=== PATIENT | female | born 1955 | race Caucasian/White ===

== ENCOUNTER → 2017-08-20 | Outpatient (CLI) | payer OTHER | END | disposition home or self-care (01) | LOC: KCIC MAMMO 12:33 | DX: Z12.31 Encounter for screening mammogram for malignant neoplasm of breast (principal); M47.896 Other spondylosis, lumbar region; M41.86 Other forms of scoliosis, lumbar region; M48.061 Spinal stenosis, lumbar region without neurogenic claudication; M43.17 Spondylolisthesis, lumbosacral region | CPT/HCPCS: 72110; 77067 ==

== ENCOUNTER → 2018-11-22 | Day surgery (SDC) | payer OTHER ==
[~2018-11-22] MED LIST: HYDROmorphone 2 MG/ML VIAL IV PRN; IBUP-1007 PO; IV RINGERS,LACTATED 1000ML 1,000 ML IV SCH; LIDOCAINE 1% PF 2 ML VIAL. ID PRN; LOSA1TAB19 PO; MECO10002 SL; MORPHINE SULFATE 2 MG/ML VIAL. IV PRN; MULT-47 PO; ONDANSETRON PF 4 MG/2 ML VIAL. IV PRN; PROCHLORPERAZINE 10 MG/2 ML VIAL. IV PRN; PROPOFOL 120 ML IV ONE; VALE500C PO; fentaNYL PF VIAL 100 MCG/2 ML VIAL IV PRN
[2018-11-22 11:15] VITALS: BP 129/86
--- NOTE | 2018-11-23 15:06 | PATHOLOGY ---
[facility] Accession Number: [id number] . 01 Material submitted: . PART A: duodenum - DUODENAL BULB BIOPSY PART B: stomach - RANDOM GASTRIC BIOPSY PART C: esophagus - DISTAL ESOPHAGUS BIOPSY. Modifiers: distal PART D: esophagus - PROXIMAL ESOPHAGUS BIOPSY. Modifiers: proximal PART E: hepatic flexure - HEPATIC FLEXURE POLYPS PART F: colon - ASCENDING COLON POLYP BIOPSY. Modifiers: ascending PART G: sigmoid colon - SIGMOID COLON POLYP . 01 Clinical history: . Dysphagia, family HX colon cancer . 02 Diagnosis: A. Duodenal biopsies, duodenal bulb: - Mild chronic inflammation with focal foveolar metaplasia. . B. Random gastric biopsies: - Mild chronic gastritis. . C. Esophageal biopsies, distal esophagus: - Segments of hyperplastic squamous esophageal mucosa and esophagogastric mucosa showing chronic inflammation. . D. Esophageal biopsies, proximal esophagus: - Segments of squamous esophageal mucosa. . E. Colon biopsies, hepatic flexure polyps: - Sessile serrated polyp / adenoma. - Prominent mucosal fold. . F. Colon biopsies, ascending colon polyp: - Consistent with prominent mucosal fold. . G. Colon biopsies, sigmoid colon polyps: - Hyperplastic polyps. . (JPM:nirav; 11/23/2018) [facility]/11/23/2018 . 02 Comment: Sections of the duodenal bulb biopsy reveal segments of duodenal mucosa showing mild chronic inflammation with a small focus of foveolar metaplasia. Sections of the random gastric biopsy reveal segments of gastric body and antral/body transition mucosa showing congestion and very mild chronic inflammation. A properly-controlled immunoperoxidase stain for Helicobacter is negative for Helicobacter organisms. Sections of the distal esophageal biopsy reveal segments of hyperplastic squamous esophageal mucosa and esophagogastric mucosa showing mild chronic inflammation. The findings are consistent with reflux esophagitis. There is no evidence of Contreras's change, dysplasia or malignancy. Sections of the proximal esophageal biopsy reveal segments of squamous esophageal mucosa. There is no evidence of an eosinophilic esophagitis, Contreras's change, dysplasia, or malignancy. Sections of the hepatic flexure biopsies reveal a sessile serrated polyp / adenoma and a prominent mucosal fold. There is no high grade dysplasia or evidence of malignancy. Sections of the ascending colon biopsies reveal segments of colonic mucosa consistent with prominent fold. There are no adenomatous changes or evidence of malignancy. Sections of the sigmoid colon biopsies reveal multiple hyperplastic polyps. There are no adenomatous changes or evidence of malignancy. . Special stain performed: Immunoperoxidase stain for Helicobacter on B1. . (JPM:mml; 11/23/2018) . 02 Electronically signed: . Davin Francisco MD, Pathologist NPI- [id number] . 01 Gross description: . A. Received in formalin labeled "Karin Willams, duodenal bulb BX," are 2 segments of ann soft tissue measuring 0.5 x 0.2 x 0.2 cm in aggregate dimensions and ranging from 0.2 to 0.3 cm in maximum dimension. The specimen is submitted entirely in cassette A1. . B. Received in formalin labeled "Karin Wlilams, random gastric BX, rule out H. pylori," are 4 segments of ann soft tissue measuring 1.5 x 0.6 x 0.3 cm in aggregate dimensions and ranging from 0.1 to 0.6 cm in maximum dimension. The specimen is submitted entirely in cassette B1. . C. Received in formalin labeled "Karin Willams, distal esophagus BX," is a single segment of ann soft tissue measuring 0.4 cm in maximum dimension. The specimen is submitted entirely in cassette C1. . D. Received in formalin labeled "Mitchel Willamsa, proximal esophagus BX," are 2 segments of ann soft tissue measuring 0.7 x 0.1 x 0.1 cm in aggregate dimensions and ranging from 0.3 to 0.4 cm in maximum dimension. The specimen is submitted entirely in cassette D1. . E. Received in formalin labeled "Karin Willams, hepatic flexure polyps," are 2 segments of ann soft tissue measuring 2.0 x 1.1 x 0.3 cm in aggregate dimensions and ranging from 0.8 to 1.2 cm in maximum dimension. The specimen is submitted entirely in cassette E1. . F. Received in formalin labeled "Karin Willams, ascending colon polyp BX," are 3 segments of ann soft tissue measuring 1.0 x 0.6 x 0.2 cm in aggregate dimensions and ranging from 0.3 to 0.5 cm in maximum dimension. The specimen is submitted entirely in cassette F1. . G. Received in formalin labeled "Karin Willams, sigmoid colon polyp BX," are 6 segments of ann soft tissue measuring 1.6 x 0.8 x 0.3 cm in aggregate dimensions and ranging from 0.2 to 0.5 cm in maximum dimension. The specimen is submitted entirely in cassette G1. (TSD; 11/22/2018) TOB/TOB . 02 Pathologist provided ICD-10: K29.80, K29.50, K20.9, D12.3, K63.5 . 02 CPT . 215360, 531972, 639020, 724226, 636859, 647325, 855886, [id number] Specimen Comment: A courtesy copy of this report has been sent to Specimen Comment: [phone], . Specimen Comment: Report sent to / DR JONES Performed at: 01 [facility] [address] [facility] [facility] [address], [place], [place] [id number] MD Giuseppe Pizarro MD Phone: [phone] Performed at: 02 [facility] [address] [place], [place] [id number] MD Davin Francisco MD Phone: [phone]
== END | disposition home or self-care (01) ==
LOC: SURG 07:49
PROVIDERS: ATTEND Internal Medicine
DX: Z12.11 Encounter for screening for malignant neoplasm of colon (principal); D12.3 Benign neoplasm of transverse colon; K63.5 Polyp of colon; K57.30 Diverticulosis of large intestine without perforation or abscess without bleeding; K64.1 Second degree hemorrhoids; K64.4 Residual hemorrhoidal skin tags; K44.9 Diaphragmatic hernia without obstruction or gangrene; K21.0 Gastro-esophageal reflux disease with esophagitis; K29.80 Duodenitis without bleeding; K31.89 Other diseases of stomach and duodenum; K22.8 Other specified diseases of esophagus; K29.50 Unspecified chronic gastritis without bleeding; F41.9 Anxiety disorder, unspecified; F32.9 Major depressive disorder, single episode, unspecified; I11.0 Hypertensive heart disease with heart failure; I50.9 Heart failure, unspecified; I25.2 Old myocardial infarction; Z82.3 Family history of stroke; Z82.49 Family history of ischemic heart disease and other diseases of the circulatory system; Z72.89 Other problems related to lifestyle; Z87.891 Personal history of nicotine dependence; Z79.82 Long term (current) use of aspirin; Z79.899 Other long term (current) drug therapy; Z98.890 Other specified postprocedural states; M19.90 Unspecified osteoarthritis, unspecified site
CPT/HCPCS: 43239; 45380; 45385; J2704; 45378